=== PATIENT | female | born 1940 | race Caucasian/White ===

== ENCOUNTER 2016-05-01 10:19 | Outpatient (CLI) | payer MEDICARE, OTHER | END 2016-05-01 10:20 | disposition home or self-care (01) | DX: Z12.31 Encounter for screening mammogram for malignant neoplasm of breast (principal) ==

== ENCOUNTER 2016-07-18 08:43 | Outpatient (CLI) | payer MEDICARE, OTHER | END 2016-07-18 08:44 | disposition home or self-care (01) | DX: E11.65 Type 2 diabetes mellitus with hyperglycemia (principal); E78.2 Mixed hyperlipidemia; I10 Essential (primary) hypertension; Z79.899 Other long term (current) drug therapy ==

== ENCOUNTER 2016-08-01 07:19 | Day surgery (SDC) | payer MEDICARE, OTHER ==
[2016-08-01] MEDS ORDERED: TROPICAMIDE 1% OPHTH 2 ML DROPS OPTH ONE (07:35)
[2016-08-01] MEDS ORDERED: CYCLOPENTOLATE 1% OPHTH DROPS 2 ML OPTH ONE (07:35)
[2016-08-01] MEDS ORDERED: KETOROLAC 0.45% OPHTH DROPS OPTH ONE (07:35)
[2016-08-01] MEDS ORDERED: LACTATED RINGERS 500 ML IV ONE (07:36)
[2016-08-01] MEDS ORDERED: BSS/LIDOCAINE/EPINEPHRINE 1 ML SYRINGE IO ONE ×2 (08:47→09:03)
[2016-08-01] MEDS ORDERED: levoFLOXacin 0.5% OPHTH DROPS 5 ML OPTH ONE ×2 (08:47→09:03)
[2016-08-01] MEDS ORDERED: CHONDR SULF/HYALURONATE SYRINGE IO ONE ×2 (08:47→09:03)
[2016-08-01] MEDS ORDERED: NEOMYCIN/POLYMYX/DEXAMETH OPHTH OINT OPTH ONE ×2 (08:47→09:03)
[2016-08-01] MEDS ORDERED: BRIMONIDINE 0.2% OPHTH DROPS 5 ML OPTH ONE ×2 (08:48→09:03)
[2016-08-01] MEDS ORDERED: EPINEPHrine 1 MG/ML AMP IO ONE ×2 (08:48→09:03)
[2016-08-01] MEDS ORDERED: PROPARACAINE 0.5% OPHTH DROPS 15 ML OPTH ONE (08:48)
[2016-08-01] MEDS ORDERED: fentaNYL 100 MCG/2 ML VIAL IVP ONE (09:10)
[2016-08-01] MEDS ORDERED: ONDANSETRON 4 MG/2 ML VIAL IVP ONE (09:10)
[2016-08-01] MEDS ORDERED: MIDAZOLAM 2 MG/2 ML VIAL IVP ONE (09:10)
== END 2016-08-01 07:20 | disposition home or self-care (01) ==
PROC: 08RK3JZ Replacement of Left Lens with Synthetic Substitute, Percutaneous Approach (ICD-10-PCS; principal; 2016-08-01 08:30)
DX: H25.12 Age-related nuclear cataract, left eye (principal); Z79.82 Long term (current) use of aspirin; K21.9 Gastro-esophageal reflux disease without esophagitis; I10 Essential (primary) hypertension; E78.5 Hyperlipidemia, unspecified; N18.3 Chronic kidney disease, stage 3 (moderate); M19.90 Unspecified osteoarthritis, unspecified site; R73.9 Hyperglycemia, unspecified; G47.30 Sleep apnea, unspecified
CPT/HCPCS: 66984; V2632

== ENCOUNTER 2016-08-22 07:37 | Day surgery (SDC) | payer MEDICARE, OTHER ==
[2016-08-22] MEDS ORDERED: TROPICAMIDE 1% OPHTH 2 ML DROPS OPTH ONE (07:55)
[2016-08-22] MEDS ORDERED: KETOROLAC 0.45% OPHTH DROPS OPTH ONE (07:55)
[2016-08-22] MEDS ORDERED: CYCLOPENTOLATE 1% OPHTH DROPS 2 ML OPTH ONE (07:55)
[2016-08-22] MEDS ORDERED: LACTATED RINGERS 500 ML IV ONE (07:59)
[2016-08-22] MEDS ORDERED: PROPARACAINE 0.5% OPHTH DROPS 15 ML OPTH ONE (09:16)
[2016-08-22] MEDS ORDERED: MIDAZOLAM 2 MG/2 ML VIAL IVP ONE (09:33)
[2016-08-22] MEDS ORDERED: BRIMONIDINE 0.2% OPHTH DROPS 5 ML OPTH ONE (09:43)
[2016-08-22] MEDS ORDERED: CHONDR SULF/HYALURONATE SYRINGE IO ONE (09:43)
[2016-08-22] MEDS ORDERED: levoFLOXacin 0.5% OPHTH DROPS 5 ML OPTH ONE (09:43)
[2016-08-22] MEDS ORDERED: BSS/LIDOCAINE/EPINEPHRINE 1 ML SYRINGE IO ONE (09:43)
[2016-08-22] MEDS ORDERED: EPINEPHrine 1 MG/ML AMP IO ONE (09:43)
[2016-08-22] MEDS ORDERED: NEOMYCIN/POLYMYX/DEXAMETH OPHTH OINT OPTH ONE (09:43)
[2016-08-22] MEDS ORDERED: TETRACAINE 0.5% OPHTH DROPS 4 ML RIGHTEYE ONE (09:44)
== END 2016-08-22 07:38 | disposition home or self-care (01) ==
PROC: 08RJ3JZ Replacement of Right Lens with Synthetic Substitute, Percutaneous Approach (ICD-10-PCS; principal; 2016-08-22 09:00)
DX: H25.11 Age-related nuclear cataract, right eye (principal); E78.5 Hyperlipidemia, unspecified; Z79.82 Long term (current) use of aspirin; I10 Essential (primary) hypertension; G47.30 Sleep apnea, unspecified
CPT/HCPCS: 66984; V2632

== ENCOUNTER 2017-02-13 08:00 | Outpatient (CLI) | payer MEDICARE, OTHER ==
[2017-02-13 18:55] LABS: HEMOGLOBIN A1C 0.57 g/dL
== END 2017-02-13 08:01 | disposition home or self-care (01) ==
LOC: LAB.R 08:00
PROVIDERS: ATTEND Internal Medicine
DX: E11.65 Type 2 diabetes mellitus with hyperglycemia (principal)
CPT/HCPCS: 83036

== ENCOUNTER 2017-08-12 08:00 | Outpatient (CLI) | payer MEDICARE, OTHER ==
[2017-08-12 13:29] LABS: BASOPHILS # (AUTO) 0.1 10^3/uL (0.0-0.1); BASOPHILS % (AUTO) 1.9 %; EOSINOPHILS # (AUTO) 0.2 10^3/uL (0.0-0.7); EOSINOPHILS % (AUTO) 4.1 %; LYMPHOCYTES # (AUTO) 1.6 10^3/uL (1.5-3.5); MEAN CORPUSCULAR HEMOGLOBIN 28.8 pg (27.0-31.0); MEAN CORPUSCULAR HGB CONC 32.9 g/dL (32.0-36.0); MEAN CORPUSCULAR VOLUME 87.5 fL (81.0-99.0); MEAN PLATELET VOLUME 9.8 fL (7.9-10.8); MONOCYTES # (AUTO) 0.5 10^3/uL (0.0-1.0); MONOCYTES % (AUTO) 10.1 %; NEUTROPHILS # (AUTO) 2.3 10^3/uL (1.5-6.6); NEUTROPHILS % (AUTO) 49.9 %; PLT - PLATELET COUNT 266 10^3/uL (130-450); RED BLOOD COUNT 4.52 10^6/uL (4.20-5.40); RED CELL DISTRIBUTION WIDTH 14.6 % (12.0-15.0); WHITE BLOOD COUNT 4.6 x10^3/uL (4.8-10.8)
[2017-08-12 13:30] LABS: ALBUMIN 4.2 g/dL (3.2-5.5); BILIRUBIN,TOTAL 0.4 mg/dL (0.2-1.0); CALCIUM 10.4 mg/dL (8.5-10.3); CREATININE 1.1 mg/dL (0.4-1.0); TOTAL PROTEIN 8.3 g/dL (6.7-8.2)
[2017-08-12 14:31] LABS: HB2 TOTAL 14.5 g/dL; HEMOGLOBIN A1C 0.65 g/dL; HEMOGLOBIN A1C % 6.3 % (4.6-6.2)
== END 2017-08-12 08:01 ==
LOC: LAB.R 08:00
PROVIDERS: ATTEND Internal Medicine
DX: E88.81 Metabolic syndrome and other insulin resistance (principal); J68.3 Other acute and subacute respiratory conditions due to chemicals, gases, fumes and vapors; E78.5 Hyperlipidemia, unspecified; I10 Essential (primary) hypertension; E11.65 Type 2 diabetes mellitus with hyperglycemia
CPT/HCPCS: 80053; 83036; 84443; 85025

== ENCOUNTER 2017-09-04 07:44 | Outpatient (CLI) | payer MEDICARE, OTHER ==
--- NOTE | 2017-09-04 17:06 | Mammography Report ---
SCREENING MAMMOGRAM: 09/04/2017 CLINICAL INDICATION: A 76-year-old for screening. COMPARISON: 04/2016, 03/2014, 02/2013, 01/2012, 01/2011, 04/2009. TECHNIQUE: Routine CC and MLO projections were obtained of the breasts. FINDINGS: The breasts again demonstrate scattered fibroglandular densities bilaterally. Coarse and punctate, typically benign calcifications are present. No suspicious masses, clustered microcalcifications, or regions of architectural distortion are identified. IMPRESSION: BENIGN FINDINGS. RECOMMENDATION: Routine annual screening unless otherwise clinically indicated. BI-RADS CATEGORY 2 BENIGN FINDINGS. STANDARD QUALIFYING STATEMENTS: 1. This examination was reviewed with the aid of Computer-Aided Detection (CAD). 2. A negative or benign imaging report should not delay biopsy if clinically suspicious findings are present. Consider surgical consultation if warranted. More than 5% of cancers are not identified by imaging. 3. Dense breasts may obscure an underlying neoplasm. TD: 09/04/2017 17:05
== END 2017-09-04 07:45 | disposition home or self-care (01) ==
LOC: DI 07:44
PROVIDERS: ATTEND Internal Medicine
DX: Z12.31 Encounter for screening mammogram for malignant neoplasm of breast (principal)
CPT/HCPCS: 77067

== ENCOUNTER 2018-01-29 09:34 | Outpatient (CLI) | payer MEDICARE, OTHER ==
[2018-01-29 14:51] LABS: ALBUMIN 4.2 g/dL (3.2-5.5); ALBUMIN/GLOBULIN RATIO 1.1 (1.0-2.2); ALKALINE PHOSPHATASE 51 IU/L (42-121); ALT ALANINE AMINOTRANSFERASE 19 IU/L (10-60); AST ASPARTATE AMINOTRANSFERASE 26 IU/L (10-42); BILIRUBIN,TOTAL 0.6 mg/dL (0.2-1.0); BUN - BLOOD UREA NITROGEN 28 mg/dL (6-20); CALCIUM 10.7 mg/dL (8.5-10.3); CARBON DIOXIDE - CO2 25 mmol/L (21-32); CHLORIDE 101 mmol/L (101-111); CHOL/HDL RATIO 3.7 (<4.4); CHOLESTEROL 202 mg/dL; GFR - MDRD 54 (>89); GLUCOSE 115 mg/dL (70-100); HDL CHOLESTEROL 54 mg/dL; LDL CHOLESTEROL,CALCULATED 121 mg/dL; LDL/HDL RATIO 2.2 (<4.4); SODIUM 137 mmol/L (135-145); VLDL CHOLESTEROL 27 mg/dL
[2018-01-29 15:11] LABS: HB2 TOTAL 13.2 g/dL; HEMOGLOBIN A1C 0.56 g/dL
== END 2018-01-29 09:35 ==
LOC: LAB.R 09:34
PROVIDERS: ATTEND Internal Medicine
DX: E88.81 Metabolic syndrome and other insulin resistance (principal); E78.5 Hyperlipidemia, unspecified
CPT/HCPCS: 80053; 80061; 83036; 83721

== ENCOUNTER 2018-02-05 08:00 | Outpatient (CLI) | payer MEDICARE, OTHER | END 2018-02-05 08:01 | disposition home or self-care (01) | LOC: LAB.R 08:00 | PROVIDERS: ATTEND Internal Medicine | DX: E83.52 Hypercalcemia (principal) | CPT/HCPCS: 82310; 83519; 83970 ==

== ENCOUNTER 2018-04-15 13:22 | Outpatient (CLI) | payer MEDICARE, OTHER ==
[2018-04-15 13:43] LABS: BASOPHILS # (AUTO) 0.1 10^3/uL (0.0-0.1); BASOPHILS % (AUTO) 0.8 %; EOSINOPHILS # (AUTO) 0.1 10^3/uL (0.0-0.7); EOSINOPHILS % (AUTO) 1.9 %; HGB - HEMOGLOBIN 12.7 g/dL (12.0-16.0); LYMPHOCYTES # (AUTO) 1.7 10^3/uL (1.5-3.5); LYMPHOCYTES % (AUTO) 23.1 %; MEAN CORPUSCULAR HEMOGLOBIN 28.2 pg (27.0-31.0); MEAN CORPUSCULAR HGB CONC 32.7 g/dL (32.0-36.0); MEAN CORPUSCULAR VOLUME 86.1 fL (81.0-99.0); MEAN PLATELET VOLUME 9.5 fL (7.9-10.8); MONOCYTES # (AUTO) 0.5 10^3/uL (0.0-1.0); MONOCYTES % (AUTO) 7.1 %; NEUTROPHILS # (AUTO) 4.9 10^3/uL (1.5-6.6); NEUTROPHILS % (AUTO) 67.1 %; PLT - PLATELET COUNT 281 10^3/uL (130-450); RED BLOOD COUNT 4.51 10^6/uL (4.20-5.40); RED CELL DISTRIBUTION WIDTH 14.6 % (12.0-15.0); WHITE BLOOD COUNT 7.3 x10^3/uL (4.8-10.8)
[2018-04-15 13:49] LABS: CALCIUM 10.2 mg/dL (8.5-10.3)
== END 2018-04-15 13:23 | disposition home or self-care (01) ==
LOC: LAB 13:22
PROVIDERS: ATTEND Physician Assistant
DX: M17.11 Unilateral primary osteoarthritis, right knee (principal); Z01.818 Encounter for other preprocedural examination
CPT/HCPCS: 36415; 80048; 85025

== ENCOUNTER 2018-07-18 10:07 | Outpatient (CLI) | payer MEDICARE, OTHER ==
--- NOTE | 2018-07-18 17:04 | MRI Report ---
Reason: SCOLIOSIS OF LUMBAR SPINE,UNSPECIFIED SCOLIOSIS TY Procedure Date: 07/18/2018 Accession Number: [id number] / [id number] Procedure: MRI - Lumbar Spine W/O CPT Code: FULL RESULT: EXAM: MRI LUMBAR SPINE WITHOUT CONTRAST EXAM DATE: 07/18/2018 12:04 PM. CLINICAL HISTORY: Scoliosis of lumbar spine, unspecified scoliosis. COMPARISON: XR LUMBOSACRAL SPINE 4 VIEWS 08/31/2009 11:51 AM. TECHNIQUE: Multiplanar, multisequence T1-weighted and fluid-sensitive sequences of the lumbar spine from T12 to S1 without contrast. Other: None. FINDINGS: There is a 50 degree levoscoliosis of the lumbar spine with the apex at L1-L2. There is moderate to severe atrophy of the paraspinal musculature and mild atrophy of the psoas musculature. The abdominal aorta is of normal caliber. The kidneys are without evidence of hydronephrosis. T12-L1: There is a small disk osteophyte complex producing a mild central canal stenosis. There is mild left and moderate right facet arthropathy. There is no significant foraminal stenosis. L1-L2: There is a right paracentral disk osteophyte. There is a minimal central canal stenosis. There is mild bilateral facet arthropathy. There is a right far lateral space osteophyte which may produce displacement of the exiting right L1 nerve root. There is moderate narrowing of the right neural foramen. L2-L3: There is a broad-based disk osteophyte complex abutting the sac eccentric to the right. There is a mild central canal stenosis and a moderate right lateral recess stenosis. There is moderate right and left facet arthropathy. There is moderate to severe narrowing of the right neural foramen. Recommend correlation for right L2 radicular symptoms. L3-L4: There is a broad-based disk osteophyte complex abutting the sac. There is moderate left and right facet arthropathy. There is moderate to severe ligamentum flavum hypertrophy. There is a moderate to severe central canal stenosis. There is moderate right and moderate to severe left foraminal stenosis. Recommend correlation for L3 radicular symptoms. L4-L5: There is a small disk osteophyte complex eccentric to the left producing a mild central canal stenosis. There is mild right and moderate left facet arthropathy. There is moderate to severe left and mild to moderate right foraminal stenosis. Recommend correlation for left L4 radiculopathy. L5-S1: There is a small disk bulge abutting the sac producing a mild central canal stenosis. There is mild to moderate right and moderate left foraminal stenosis. IMPRESSION: 1. There is a 50 degree levoscoliosis of the lumbar spine with the apex at L1-L2. 2. There are mild and minimal central canal stenoses at T12-L1 and L1-L2, respectively from small disk osteophyte complex and right paracentral disk osteophyte, respectively. 3. There is a moderate to severe narrowing of the right neural foramen which may produce a right L2 radiculopathy. There is a broad-based disk osteophyte complex abutting the sac producing a mild central canal stenosis at L2-L3. 4. There is a broad-based disk osteophyte complex at L3-L4 which in combination with ligamentum flavum hypertrophy and facet arthropathy produces a moderate to severe central canal stenosis. There is a moderate to severe left foraminal stenosis. Recommend correlation for left L3 radiculopathy. 5. There is a small disk osteophyte complex eccentric to the left producing mild central canal stenosis at L4-L5. There is moderate to severe left foraminal stenosis. Recommend correlation for left L4 radiculopathy. Comment: The following findings are so common in adults without low back pain that while we report their presence, they must be interpreted with caution and in the context of the clinical situation. (Reference Maria Esther et al, Spine 2001) Prevalence of findings in patients without low back pain: Disk degeneration (any evidence): 92% Disk desiccation/T2 signal loss: 83% Disk height loss: 56% Disk bulge: 64% Disk protrusion: 32% Annular tear/high intensity zone: 38% RADIA
== END 2018-07-18 10:08 | disposition home or self-care (01) ==
LOC: DI 10:07
PROVIDERS: ATTEND Orthopaedic Surgery
DX: M41.9 Scoliosis, unspecified (principal); M47.9 Spondylosis, unspecified; M48.061 Spinal stenosis, lumbar region without neurogenic claudication; M25.78 Osteophyte, vertebrae; M48.07 Spinal stenosis, lumbosacral region
CPT/HCPCS: 72148

== ENCOUNTER 2020-01-15 10:04 | Emergency (ER) | payer MEDICARE, OTHER ==
[2020-01-15] MEDS ORDERED: AMOX/CLAV 875 MG/125 MG TABLET PO STA (12:27)
[2020-01-15] MEDS ORDERED: TETANUS/DIPHTHERIA/PERTUSSIS 0.5 ML SYRINGE IM ONE (12:27)
--- NOTE | 2020-01-15 12:30 | ED Physician Documentation ---
History of Present Illness - Stated complaint Stated Complaint: CAT BITES - LT ARM, RT HAND - Chief complaint Chief Complaint: Wound - History obtained from History obtained from: Patient - History of Present Illness Timing: How many days ago (2) Pain level max: 3 Pain level now: 2 - Additonal information Additional information: 79-year-old female presents to the emergency department after a cat bite to the left forearm 2 days ago and another cat bite yesterday on the right hand. Started to have redness and inflammation, some drainage from the left arm wound. No fevers. Nothing makes it better or worse. Last tetanus shot was approximately 10 years ago. Review of Systems Constitutional: denies: Fever, Chills GI: denies: Vomiting, Diarrhea Skin: denies: Rash Musculoskeletal: denies: Neck pain, Back pain Neurologic: denies: Headache PD PAST MEDICAL HISTORY - Past Medical History Cardiovascular: Hypertension, High cholesterol Respiratory: Sleep apnea, CPAP use Endocrine/Autoimmune: None GI: GERD, Diverticulitis : None HEENT: Chronic vision loss, Glaucoma Psych: None Musculoskeletal: Osteoarthritis, Chronic back pain Derm: Other - Past Surgical History General: Colonoscopy, EGD Ortho: Rotator cuff repair, Carpal Tunnel surgery, Other - Present Medications Home Medications: Ambulatory Orders Medication Instructions Recorded Confirmed Aspirin [Aspir 81] 81 mg PO DAILY 05/27/14 08/01/16 Cholecalciferol (Vitamin D3) 2,000 unit PO DAILY 05/27/14 08/01/16 [Vitamin D-3] Fenofibrate 160 mg PO QPM 05/27/14 08/01/16 Fluticasone [Flonase] 2 inh INH DAILY PRN 05/27/14 07/31/16 Metoprolol Succinate 50 mg PO DAILY 05/27/14 08/01/16 Multivitamin [Multivitamins] 1 each PO DAILY 05/27/14 08/01/16 Niacin (Inositol Niacinate) 1,000 mg PO BID 05/27/14 08/01/16 [Niacin Flush-Free 500 mg Cap] [place]-3 Fatty Acids [Fish Oil] 1,000 mg PO BID 05/27/14 08/01/16 Omeprazole 20 mg PO DAILY 05/27/14 08/01/16 lisinopriL [Lisinopril] 40 mg PO DAILY 05/27/14 08/01/16 Docusate Sodium 100 mg PO DAILY PRN 07/31/16 08/01/16 Latanoprost 1 drops OP QPM 07/31/16 08/01/16 Amox/Clav 875/125 [Augmentin] 1 each PO Q12H #20 tablet 01/15/20 - Allergies Allergies/Adverse Reactions: Allergies Allergy/AdvReac Type Severity Reaction Status Date / Time statins AdvReac Severe Blew Uncoded 01/15/20 10:21 tendons apart tape AdvReac Unknown Uncoded 01/15/20 10:21 PD ED PE NORMAL - Vitals Vital signs reviewed: Yes - General General: Alert and oriented X 3, No acute distress - HEENT HEENT: Moist mucous membranes - Derm Derm: Warm and dry - Extremities Extremities: Other (3 x 3 cm area of erythema with minimal drainage to the left forearm. 1 x 1 cm of erythema to the right hand, dorsum, webspace between the thumb and index finger. No drainage. No fluctuance. No lymphangitis.) - Neuro Neuro: Alert and oriented X 3 - Psych Psych: Normal mood, Normal affect Results - Vitals Vitals: Vital Signs - 24 hr 01/15/20 01/15/20 10:12 12:01 Temperature 36.6 C 36.9 C Heart Rate 95 94 Respiratory 17 22 Rate Blood Pressure 122/61 176/69 H O2 Saturation 94 98 Oxygen O2 Source Room air PD MEDICAL DECISION MAKING - ED course Complexity details: considered differential, d/w patient ED course: Patient with multiple cat bites. 1 of them has a small amount of purulent drainage. Drainage was expressed and cultured. We will place her on Augmentin. Tdap given. Patient counseled regarding signs and symptoms for which I believe and urgent re-evaluation would be necessary. Patient with good understa nding of and agreement to plan and is comfortable going home at this time This document was made in part using voice recognition software. While efforts are made to proofread this document, sound alike and grammatical errors may occur. Departure - Departure Disposition: 01 Home, Self Care Clinical Impression: Cat bite Qualifiers: Encounter type: initial encounter Qualified Code(s): W55.01XA - Bitten by cat, initial encounter Cellulitis Qualifiers: Site of cellulitis: extremity Site of cellulitis of extremity: upper extremity Laterality: left Qualified Code(s): L03.114 - Cellulitis of left upper limb Condition: Good Instructions: ED Infec Skin Cellulitis, Bites Scratches Animal Follow-Up: Grzegorz Guo MD [Primary Care Provider] - Within 1 week Prescriptions: Amox/Clav 875/125 [Augmentin] 1 each PO Q12H #20 tablet Comments: Take all antibiotics until gone. Return if you worsen. Follow-up with your doctor for further care and wound check within 3 to 4 days. Return here if you develop fevers, increasing redness, swelling, drainage, etc.
[2020-01-15 13:21] VITALS: BP 146/81
== END 2020-01-15 13:20 | disposition home or self-care (01) ==
LOC: ED 10:04
DX: L03.114 Cellulitis of left upper limb (principal); S61.451A Open bite of right hand, initial encounter; W55.01XA Bitten by cat, initial encounter
CPT/HCPCS: 87070; 87077; 87205; 90471; 90715; 99283; 99284; A9270

== ENCOUNTER 2021-01-23 09:55 | Outpatient (CLI) | payer MEDICARE, OTHER ==
[2021-01-23 10:25] LABS: BASOPHILS % (AUTO) 0.8 %; EOSINOPHILS # (AUTO) 0.2 10^3/uL (0.0-0.7); EOSINOPHILS % (AUTO) 3.1 %; HCT - HEMATOCRIT 42.7 % (37.0-47.0); HGB - HEMOGLOBIN 13.6 g/dL (12.0-16.0); LYMPHOCYTES # (AUTO) 1.3 10^3/uL (1.5-3.5); LYMPHOCYTES % (AUTO) 26.9 %; MEAN CORPUSCULAR HEMOGLOBIN 31.5 pg (27.0-31.0); MEAN CORPUSCULAR HGB CONC 31.9 g/dL (32.0-36.0); MEAN CORPUSCULAR VOLUME 98.8 fL (81.0-99.0); MONOCYTES # (AUTO) 0.4 10^3/uL (0.0-1.0); MONOCYTES % (AUTO) 9.1 %; NEUTROPHILS # (AUTO) 2.9 10^3/uL (1.5-6.6); NEUTROPHILS % (AUTO) 59.7 %; PLT - PLATELET COUNT 228 10^3/uL (130-450); RED BLOOD COUNT 4.32 10^6/uL (4.20-5.40); RED CELL DISTRIBUTION WIDTH 13.2 % (12.0-15.0); WHITE BLOOD COUNT 4.8 x10^3/uL (4.8-10.8)
[2021-01-23 10:37] LABS: ALBUMIN 4.1 g/dL (3.2-5.5); ALKALINE PHOSPHATASE 43 IU/L (42-121); ALT ALANINE AMINOTRANSFERASE 27 IU/L (10-60); AST ASPARTATE AMINOTRANSFERASE 30 IU/L (10-42); BILIRUBIN,TOTAL 0.6 mg/dL (0.2-1.0); BUN - BLOOD UREA NITROGEN 38 mg/dL (6-20); CALCIUM 10.5 mg/dL (8.5-10.3); CARBON DIOXIDE - CO2 25 mmol/L (21-32); CHLORIDE 104 mmol/L (101-111); CHOL/HDL RATIO 3.6 (<4.4); CHOLESTEROL 240 mg/dL; CREATININE 1.4 mg/dL (0.4-1.0); GFR - MDRD 36 (>89); GLUCOSE 118 mg/dL (70-100); HDL CHOLESTEROL 66 mg/dL; LDL CHOLESTEROL,CALCULATED 142 mg/dL; LDL/HDL RATIO 2.2 (<4.4); POTASSIUM 4.5 mmol/L (3.5-5.0); SODIUM 142 mmol/L (135-145); TOTAL PROTEIN 8.3 g/dL (6.7-8.2); TRIGLYCERIDES 158 mg/dL; VLDL CHOLESTEROL 32 mg/dL
[2021-01-23 10:49] LABS: THYROID STIMULATING HORMONE 1.34 uIU/mL (0.34-5.60)
[2021-01-23 12:36] LABS: ESTIMATED AVERAGE GLUCOSE 140 mg/dL (70-100); HEMOGLOBIN A1c% 6.5 % (4.27-6.07)
== END 2021-01-23 09:56 | disposition home or self-care (01) ==
LOC: LAB 09:55
PROVIDERS: ATTEND Family Medicine
DX: M54.16 Radiculopathy, lumbar region (principal); M62.830 Muscle spasm of back; M41.9 Scoliosis, unspecified; M17.0 Bilateral primary osteoarthritis of knee; G47.33 Obstructive sleep apnea (adult) (pediatric); E88.81 Metabolic syndrome and other insulin resistance; E78.5 Hyperlipidemia, unspecified; K21.9 Gastro-esophageal reflux disease without esophagitis; I10 Essential (primary) hypertension; E11.9 Type 2 diabetes mellitus without complications
CPT/HCPCS: 36415; 80053; 80061; 83036; 83721; 84443; 85025

== ENCOUNTER 2021-04-13 14:04 | Outpatient (CLI) | payer MEDICARE, OTHER ==
[2021-04-13 15:06] VITALS: BP 134/92
--- NOTE | 2021-04-13 15:06 | SLEEP CARE CONSULTATION ---
Information from patient questionnaire entered by Sonny Laura MA. I have reviewed and concur with the information entered by Sonny Laura MA. This document represents the service I personally performed and the decisions made by , Amy Dillard ARNP. History of Present Illness Service Date and Time: 04/13/2021 1404 Reason for Visit: New patient, Previously diagnosed sleep apnea, sleep apnea on CPAP therapy, Other (ADVICE ON BATTERY, POWER OUTAGES) Chief Complaint: reports: Excessive daytime sleepiness, Observed pauses in breathing, Frequent awakenings at night Date of Onset: 12 YEARS Usual bedtime: 900 PM Time it takes to fall asleep: VARIES Snores at night: No Observed to quit breathing while asleep: No Sleeps alone due to snoring: No Number of times waking at night: 3-5 Reasons for waking at night: reports: Gasping for air, Pain, Bathroom Toss, Turn, or Twitch while sleeping: Yes Recalls having dreams: Yes Usually gets out of bed at: [address] Morning headache: Yes Sleepy or fatigued during the day: No Ever fallen asleep while driving: Yes Takes day naps: No Prior sleep studies: Yes Additional HPI information: KARYNA MIKE was previouly diagnosed to have moderate, AHI 15.8, obstructive sleep apnea-hypopnea syndrome and returns to the office today with spouse to re- establish care for CPAP therapy. - Parasomnia Symptoms Ever been unable to move upon waking from sleep: No Walks in sleep: No Talks in sleep: Yes Ever acted out dreams in sleep: Yes Ever felt weak in the knees when startled or emotional: No Bothered by creepy, crawly, restless sensations in legs: No Problems with memory or concentration: Yes CPAP Compliance Data - Data Reviewed with Patient Average duration of nightly device use: 10 hours 36 minutes Compliance rate %: 99.4 Humidity settin Average residual AHI: 0.6 Central apnea: 0.2 Obstructive apnea: 0.2 Compliance data discussion: She uses a Jarred machine. She states she cannot sleep without it. She uses a [employer] Wisp. She last changed it about 5-6 weeks ago. Subjective Missed days of use due to: reports: other (power outage) Patient concerns: reports: air blowing in eyes, nasal congestion, dry mouth, nose, throat (dry mouth ). denies: aerophagia, mask discomfort, mask leak noise, condensation in mask/hose, epistaxis, other Initial Williams Sleepiness Scale score: 4 (2020) Past Medical History Past Medical History: reports: Claustrophobia, Diabetes, Arthritis, Asthma, GERD, Attention deficit Social History The patient's occupation is a RE. Patient is and lives in [place]. Have you smoked in the past 12 months: No Alcohol use: Yes Alcohol amount and frequency: 1-2 X DAILY Caffeine use: Yes Caffeine amount and frequency: 1 CUP X DAILY Family History Family history of sleep disordered breathing: No Allergies and Home Medications Known drug allergies: No (STATINS) Home medication list reviewed: Yes Allergy and home medication list: Lisinopril Metoprolol Omeprazole Fenofibrate Latanoprost opthalmic solution Drzolamide 2% solution Alphagan P Albuterol inhaler, prn Flonase Senior multivitamins fish oil Niacinamid docusate sodium Aleve Acetaminophen Acetaminophen PM Vitamin D3 Review of Systems Cardiovascular: reports: have to sleep sitting up Respiratory: reports: chronic cough Urinary: reports: incontinence Psychiatric: reports: claustrophobia Ear/Nose/Throat: reports: sinus problems Endocrine: reports: sluggishness Musculoskeletal: reports: mobility problems (SEVERE CURVATURE OF SPINE BOTH KNEES REPLACED) Physical Exam Vital signs obtained and entered by: RODRIGUE DÍAZ Blood Pressure: 134/92 (RIGHT) Cuff size: wrist Heart Rate: 97 O2 Saturation: 95 (WITH MASK) Height: 5 ft 1 in Weight: 187 lb (WITH CLOTHES) Body Mass Index: 35.3 BMI Classification: Obese Heart: regular rate and rhythm Lungs: clear bilaterally Impression and Plan 1. Obstructive Sleep Apnea-Hypopnea Syndrome, moderate, with good treatment compliance and good apnea control. On CPAP therapy, the patient has better sleep quality and is more rested overall. Patient states she always has dry mouth. Recently she started to have some nasal congestion and she saw her doctor who told her it was more sinus related. I asked her about her humidity chamber and she states she does not know how to use it but she does feel it with water every day. She still gets a dry mouth in the mornings. Patient has a REMstar system one 60 series. She has not been seen here in the office since 2016. She tried to get supplies from her DME [employer] but they told her she had to be seen first and she came in for an appointment. I informed the patient that Jarred [employer] has a recall on several devices like the patients machine. Patient denies any black particles seen in machine or hoses, any unusual odors coming from device. Patient has not experienced any physical symptoms such as upper airway irritation, headache, skin or eye irritation, asthma, nausea/vomiting, difficulty breathing or chest pain. If patient is not able to sleep due to waking up choking, gasping for air or other respiratory distress that they may decide to continue using it until it is either replaced or repaired. Since the patients current machine is at least 5 years old the patient is opting to update their device with a device that is not on the recall. Thus, the CPAP will be updated. The new CPAPs also have a better humidity system which could assist control of patients dryness symptoms. A DWO prescription will be made. Compliance guidelines for new device and follow up discussed. Patient voiced understanding and agreement with plan. Patient's apnea severity and rationale for treatment to reduce apnea, improve sleep quality and reduce cardiovascular and cerebrovascular events was reviewed. I also reviewed the benefit of consistent device use of CPAP for hypertension and gastric reflux. * Continue auto CPAP pressure at 11 cmH2O * Notify me if snoring with mask or feeling that the pressure is too much or too little * Attempt to lose weight * Call this office if any problems using CPAP * Return for follow up one month after obtaining new device, or sooner if concerns arise Counseling Topics: Weight loss health impact Visit Type: In Office Time Spent with Patient (minutes): 32 Provider Statement: I spent 100% of the Face to Face Visit with the patient with greater than 50% spent counseling the patient and coordination of care.
== END 2021-04-13 14:05 | disposition home or self-care (01) ==
LOC: SC 14:04
PROVIDERS: ATTEND Nurse Practitioner Family
DX: G47.33 Obstructive sleep apnea (adult) (pediatric) (principal); E66.9 Obesity, unspecified; Z68.35 Body mass index [BMI] 35.0-35.9, adult
CPT/HCPCS: 99203; G0463; 99212

== ENCOUNTER 2021-06-30 11:21 | Outpatient (CLI) | payer MEDICARE, OTHER ==
--- NOTE | 2021-06-30 12:20 | SLEEP CARE CONSULTATION ---
Information from patient questionnaire entered by Sonny Higginbotham MA. I have reviewed and concur with the information entered by Sonny Higginbotham MA. This document represents the service I personally performed and the decisions made by , Amy Dillard ARNP. History of Present Illness Service Date and Time: 06/30/2021 1121 Previous diagnosis: Moderate, Obstructive Sleep Apnea-Hypopnea Syndrome AHI: 15.8 Reason for follow up: first compliance (SET UP DATE 05/16, BAKARI 2,), first compliance after device update Equipment type: CPAP Equipment obtained from: [employer] (getting supplies but not real happy with the DME) Mask style: Nasal Mask brand: Respironics (Dreamwear Wisp) Backup mask available: Yes (other mask) Last cushion change: 2 days ago Prior sleep studies: Yes HPI additional information: KARYNA MIKE was diagnosed to have moderate, AHI 15.8, obstructive sleep apnea-hypopnea syndrome and returned today for CPAP therapy first compliance after updating device follow-up. Sleep Study - Results Prior sleep studies: Yes CPAP Compliance Data - Data Reviewed with Patient Average duration of nightly device use: 10 hours 55 minutes Compliance rate %: 100 Current pressure setting (cmH2O): 4-11 Average residual AHI: 0.4 Central apnea: 0.2 Average large leak: 2.1 LPM Subjective Patient concerns: reports: air blowing in eyes, other (some eyelid redness). denies: aerophagia, mask discomfort, mask leak noise, condensation in mask/hose, nasal congestion, dry mouth, nose, throat, epistaxis Observed to snore while using device: No Current pressure setting perceived as: comfortable On therapy, patient: reports: sleeping better, awakening more refreshed, being more awake and alert during the day, more rested overall. denies: drowsiness while driving Initial [place] Sleepiness Scale score: 4 (2020) Current [place] Sleepiness Scale score: 3 (2021) Allergies and Home Medications Home medication list reviewed: Yes (no changes) Allergy and home medication list: Allergies statins Adverse Reaction (Severe, Uncoded 01/15/20 10:21) Blew tendons apart tape Adverse Reaction (Uncoded 01/15/20 10:21) Unknown Review of Systems Review of systems same as previous: No (boderline diabetes, no meds yet) Physical Exam Vital signs obtained and entered by: Heron HIGGINBOTHAM CMA MELISSA Blood Pressure: 123/94 (right, pulse 92, resp 16,) Cuff size: wrist Heart Rate: 72 O2 Saturation: 97 (n94) Height: 5 ft 1 in Weight: 186 lb (clothes) Weight change since last visit: 1 lb gain Body Mass Index: 35.1 BMI Classification: Obese Impression and Plan 1. Obstructive Sleep Apnea-Hypopnea Syndrome, moderate, with excellent treatment compliance and excellent apnea control. On CPAP therapy, the patient has better sleep quality and is more rested overall. Patient is satisfied with current CPAP therapy and new device. She states she cannot sleep without it. She does have a [employer]ear wisp and states sometimes she gets air into her eyes. She also wakes up with reddening of her eyelids. She has a history of glaucoma and uses drops in her eyes every day. She would like to try a different style of nasal mask. I showed her a [employer]ear nasal cushion mask and gave her a sample that she can try at home. I instructed her that if it works for her that she can order more through her DME supplier. She voiced understanding. Patient's apnea severity and rationale for treatment to reduce apnea, improve sleep quality and reduce cardiovascular and cerebrovascular events was reviewed. I also reviewed the benefit of consistent device use of CPAP for diabetes, gastric reflux, attention deficit and asthma. 2. Obesity, unspecified. Patient has gained weight. Currently patients BMI is 35.1. Obesity increases the risk of apnea, CPAP pressure requirements and overall health risks especially cardiovascular and diabetes. Thus patient is advised to lose weight. Weight loss can be done with reducing portion size, reducing refined foods and balancing content with vegetables, fruit and whole gr ain foods. In addition, patient encouraged to get regular exercise. Patient stated she has difficulty being able to get exercise because she was unsteady on her feet and has to use a cane for safe ambulation. I suggested trying a pedal circular tank cooper that she could do while sitting to increase her exercise. I showed her a sample of what they look like online. She voiced that she would try this because it looks like it would work for her. * Continue auto CPAP pressure at 4-11 cmH2O * Notify me if snoring with mask or feeling that the pressure is too much or too little * Attempt to lose weight * Try a stationary foot pedal circular tank cooper to help increase activity * Call this office if any problems using CPAP * Return for follow up in 1 year, or sooner if concerns arise Mask provided: Yes Counseling Topics: Spare mask, Weight loss health impact Visit Type: In Office Time Spent with Patient (minutes): 21 Provider Statement: I spent 100% of the Face to Face Visit with the patient with greater than 50% spent counseling the patient and coordination of care.
[2021-06-30 12:21] VITALS: BP 123/94
== END 2021-06-30 11:22 | disposition home or self-care (01) ==
LOC: SC 11:21
PROVIDERS: ATTEND Nurse Practitioner Family
DX: G47.33 Obstructive sleep apnea (adult) (pediatric) (principal); E66.9 Obesity, unspecified; Z68.35 Body mass index [BMI] 35.0-35.9, adult
CPT/HCPCS: 99213; G0463; 99212

== ENCOUNTER 2021-08-08 08:00 | Outpatient (CLI) | payer MEDICARE, OTHER ==
[2021-08-08 09:42] LABS: CALCIUM 10.4 mg/dL (8.5-10.3); CREATININE 1.2 mg/dL (0.4-1.0); POTASSIUM 4.3 mmol/L (3.5-5.0)
[2021-08-08 13:02] LABS: ESTIMATED AVERAGE GLUCOSE 154 mg/dL (70-100)
== END 2021-08-08 08:01 | disposition home or self-care (01) ==
LOC: LAB 08:00
PROVIDERS: ATTEND Family Medicine
DX: E11.9 Type 2 diabetes mellitus without complications (principal); E66.9 Obesity, unspecified
CPT/HCPCS: 36415; 80048; 83036

== ENCOUNTER 2022-08-16 11:19 | Outpatient (CLI) | payer MEDICARE, OTHER ==
[2022-08-16 12:10] VITALS: BP 120/70
--- NOTE | 2022-08-16 12:10 | SLEEP CARE CONSULTATION ---
Information from patient questionnaire entered by Suzanne Farmer. I have reviewed and concur with the information entered by Suzanne Farmer. This document represents the service I personally performed and the decisions made by me, Amy Dillard ARNP. History of Present Illness Service Date and Time: 08/16/2022 1119 Previous diagnosis: Moderate, Obstructive Sleep Apnea-Hypopnea Syndrome AHI: 15.8 Reason for follow up: annual (LAST SEEN 06/2021) Equipment type: CPAP (Jeanne II; ICODE NEED PT MACHINE OR SD CARD FOR DOWNLOAD AND PRESSURE CHANGES) Equipment obtained from: [employer] (getting supplies) Mask style: Nasal pillows (P10 for women) Mask brand: Resmed Backup mask available: Yes (old mask) Last cushion change: 2 weeks Prior sleep studies: Yes HPI additional information: KARYNA MIKE was diagnosed to have moderate, AHI 15.8, obstructive sleep apnea-hypopnea syndrome and returned today for CPAP therapy annual follow-up. Sleep Study - Results Prior sleep studies: Yes CPAP Compliance Data - Data Reviewed with Patient Average duration of nightly device use: 11 hours (includes afternoon nap) Compliance rate %: 100 Current pressure setting (cmH2O): 11 Average residual AHI: 1.3 Average large leak: 2.3 lpm Compliance data discussion: She is wearing her mask every night. We were unable to get full data from her machine on hours used but she appears to be compliant with CPAP use. Subjective Patient concerns: denies: aerophagia, mask discomfort, air blowing in eyes, mask leak noise, condensation in mask/hose, nasal congestion, dry mouth, nose, throat, epistaxis Observed to snore while using device: No Current pressure setting perceived as: comfortable On therapy, patient: reports: sleeping better, awakening more refreshed, being more awake and alert during the day, more rested overall. denies: drowsiness while driving Initial [place] Sleepiness Scale score: 4 (2020) Current [place] Sleepiness Scale score: 3 (08/16/22) Allergies and Home Medications Known drug allergies: Yes (as listed) Drug allergies reviewed: Yes Home medication list reviewed: Yes (no changes) Allergy and home medication list: Allergies statins Adverse Reaction (Severe, Uncoded 08/15/22 14:05) Blew tendons apart tape Adverse Reaction (Uncoded 08/15/22 14:05) Unknown Review of Systems Review of systems same as previous: No (newly diagnosed with Diabetes, no new meds yet - diet changes first) Physical Exam Vital signs obtained and entered by: SUZANNE Clarke MA Blood Pressure: 120/70 (LEFT ARM) Cuff size: regular Heart Rate: 94 O2 Saturation: 98 Height: 5 ft 1 in Weight: 192 lb 12.8 oz Weight change since last visit: 8 lb gain from last visit Body Mass Index: 36.4 BMI Classification: Obese Impression and Plan 1. Obstructive Sleep Apnea-Hypopnea Syndrome, moderate, with good treatment compliance and good apnea control. On CPAP therapy, the patient has better sleep quality and is more rested overall. Patient has significant improvement of her sleep apnea and is satisfied with current CPAP therapy. Patient denies problems with oral dryness, nasal congestion, epistaxis, skin irritation or aerophagia. We will follow up with her next year. Patient's apnea severity and rationale for treatment to reduce apnea, improve sleep quality and reduce cardiovascular and cerebrovascular events was reviewed. I also reviewed the benefit of consistent device use of CPAP for diabetes, gastric reflux, attention deficit and asthma. 2. Obesity, unspecified. Currently patients BMI is 36.4. Obesity increases the risk of apnea, CPAP pressure requirements and overall health risks especially cardiovascular and diabetes. Thus patient is advised to lose weight. * Continue CPAP pressure at 11 cmH2O * Update supplies * Notify me if snoring with mask or feeling that the pressure is too much or too little * Attempt to lose weight * Call this office if any problems using CPAP * Return for follow up in 1 year, or sooner if concerns arise Counseling Topics: Spare mask, Weight loss health impact Visit Type: In Office Time Spent with Patient (minutes): 23 Provider Statement: I spent 100% of the Face to Face Visit with the patient with greater than 50% spent counseling the patient and coordination of care.
== END 2022-08-16 11:20 | disposition home or self-care (01) ==
LOC: SC 11:19
PROVIDERS: ATTEND Nurse Practitioner Family
DX: G47.33 Obstructive sleep apnea (adult) (pediatric) (principal); E66.9 Obesity, unspecified; Z68.36 Body mass index [BMI] 36.0-36.9, adult
CPT/HCPCS: 99213; G0463; 99212

== ENCOUNTER 2022-09-03 08:20 | Outpatient (CLI) | payer MEDICARE, OTHER ==
[2022-09-03 09:01] LABS: CALCIUM 10.7 mg/dL (8.5-10.3); CREATININE 1.1 mg/dL (0.4-1.0); POTASSIUM 4.7 mmol/L (3.5-5.0)
[2022-09-03 13:59] LABS: ESTIMATED AVERAGE GLUCOSE 154 mg/dL (70-100)
== END 2022-09-03 08:21 | disposition home or self-care (01) ==
LOC: LAB 08:20
PROVIDERS: ATTEND Family Medicine
DX: E11.9 Type 2 diabetes mellitus without complications (principal); E66.9 Obesity, unspecified
CPT/HCPCS: 36415; 80048; 83036

== ENCOUNTER 2022-12-19 09:03 | Outpatient (CLI) | payer MEDICARE, OTHER ==
[2022-12-19 09:27] LABS: CALCIUM 10.9 mg/dL (8.5-10.3); CREATININE 1.3 mg/dL (0.6-1.3); POTASSIUM 4.5 mmol/L (3.5-4.5)
[2022-12-19 11:23] LABS: ESTIMATED AVERAGE GLUCOSE 154 mg/dL (70-100)
== END 2022-12-19 09:04 | disposition home or self-care (01) ==
LOC: LAB 09:03
PROVIDERS: ATTEND Family Medicine
DX: E11.9 Type 2 diabetes mellitus without complications (principal)
CPT/HCPCS: 36415; 80048; 83036

== ENCOUNTER 2023-07-18 13:39 | Outpatient (CLI) | payer MEDICARE, OTHER ==
[2023-07-18 14:11] LABS: ALBUMIN 4.5 g/dL (3.2-5.5); ALKALINE PHOSPHATASE 50 IU/L (42-121); ALT ALANINE AMINOTRANSFERASE 16 IU/L (10-60); AST ASPARTATE AMINOTRANSFERASE 25 IU/L (10-42); BILIRUBIN,DIRECT < 0.10 mg/dL (0.03-0.18); BILIRUBIN,TOTAL 0.5 mg/dL (0.2-1.0); BUN - BLOOD UREA NITROGEN 32 mg/dL (6-20); CREATININE 1.2 mg/dL (0.6-1.3); GFR - MDRD 43 (>89); TOTAL PROTEIN 8.4 g/dL (6.4-8.9)
== END 2023-07-18 13:40 | disposition home or self-care (01) ==
LOC: LAB 13:39
PROVIDERS: ATTEND Physician Assistant Medical
DX: B35.1 Tinea unguium (principal)
CPT/HCPCS: 36415; 80076; 82565; 84520

== ENCOUNTER 2023-08-22 10:16 | Outpatient (CLI) | payer MEDICARE, OTHER ==
--- NOTE | 2023-08-22 10:51 | Sleep Patient Instructions ---
Sleep Center Visit Summary - Patient Visit Information Reason for Visit: Annual follow-up - Patient Instructions Additional Instructions: You will continue with CPAP therapy with pressure set at 11 cmH2O. A supply prescription will be updated with your DME. We encourage you to continue to try to lose weight. Please follow up with the sleep care office in 1 year. - Clinic Information Contact: [facility] [address] [place] [address] [email or web address] T: [phone]
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
[2023-08-22 11:00] VITALS: BP 163/99; O2SAT 99
== END 2023-08-22 10:17 | disposition home or self-care (01) ==
LOC: SC 10:16
PROVIDERS: ATTEND Nurse Practitioner Family
DX: G47.33 Obstructive sleep apnea (adult) (pediatric) (principal); E66.9 Obesity, unspecified; Z68.34 Body mass index [BMI] 34.0-34.9, adult
CPT/HCPCS: 99213; G0463; 99212

== ENCOUNTER 2023-09-11 08:50 | Outpatient (CLI) | payer MEDICARE, OTHER ==
[2023-09-11 09:05] LABS: BASOPHILS % (AUTO) 0.6 %; EOSINOPHILS # (AUTO) 0.2 10^3/uL (0.0-0.7); EOSINOPHILS % (AUTO) 2.8 %; HCT - HEMATOCRIT 42.2 % (37.0-47.0); HGB - HEMOGLOBIN 13.6 g/dL (12.0-16.0); LYMPHOCYTES # (AUTO) 1.6 10^3/uL (1.5-3.5); LYMPHOCYTES % (AUTO) 28.9 %; MEAN CORPUSCULAR HEMOGLOBIN 30.6 pg (27.0-31.0); MEAN CORPUSCULAR HGB CONC 32.2 g/dL (32.0-36.0); MEAN PLATELET VOLUME 10.1 fL (7.9-10.8); MONOCYTES # (AUTO) 0.5 10^3/uL (0.0-1.0); MONOCYTES % (AUTO) 9.5 %; NEUTROPHILS # (AUTO) 3.1 10^3/uL (1.5-6.6); NEUTROPHILS % (AUTO) 57.8 %; PLT - PLATELET COUNT 238 10^3/uL (130-450); RED BLOOD COUNT 4.44 10^6/uL (4.20-5.40); RED CELL DISTRIBUTION WIDTH 13.7 % (12.0-15.0); WHITE BLOOD COUNT 5.4 x10^3/uL (4.8-10.8)
[2023-09-11 09:19] LABS: ALBUMIN 4.4 g/dL (3.2-5.5); ALBUMIN/GLOBULIN RATIO 1.1 (1.0-2.2); ALKALINE PHOSPHATASE 55 IU/L (42-121); ALT ALANINE AMINOTRANSFERASE 14 IU/L (10-60); AST ASPARTATE AMINOTRANSFERASE 18 IU/L (10-42); BILIRUBIN,TOTAL 0.4 mg/dL (0.2-1.0); BUN - BLOOD UREA NITROGEN 39 mg/dL (6-20); CARBON DIOXIDE - CO2 25 mmol/L (21-32); CHLORIDE 104 mmol/L (101-111); CHOL/HDL RATIO 3.8 (<4.4); CHOLESTEROL 204 mg/dL; CREATININE 1.3 mg/dL (0.6-1.3); GFR - MDRD 39 (>89); GLUCOSE 118 mg/dL (74-104); HDL CHOLESTEROL 54 mg/dL; LDL CHOLESTEROL,CALCULATED 119 mg/dL; LDL/HDL RATIO 2.2 (<4.4); POTASSIUM 4.3 mmol/L (3.5-4.5); SODIUM 137 mmol/L (135-145); TOTAL PROTEIN 8.3 g/dL (6.4-8.9); TRIGLYCERIDES 157 mg/dL (48-352); VLDL CHOLESTEROL 31 mg/dL
[2023-09-11 09:34] LABS: THYROID STIMULATING HORMONE 1.47 uIU/mL (0.34-5.60)
[2023-09-11 10:19] LABS: ESTIMATED AVERAGE GLUCOSE 148 mg/dL (70-100); HEMOGLOBIN A1c% 6.8 % (4.27-6.07)
== END 2023-09-11 08:51 | disposition home or self-care (01) ==
LOC: LAB 08:50
PROVIDERS: ATTEND Family Medicine
DX: E55.9 Vitamin D deficiency, unspecified (principal)
CPT/HCPCS: 36415; 80053; 80061; 82306; 83036; 83721; 84443; 85025

== ENCOUNTER 2023-12-02 09:02 | Outpatient (CLI) | payer MEDICARE, OTHER ==
[2023-12-02 09:31] LABS: ALBUMIN 4.5 g/dL (3.2-5.5); ALKALINE PHOSPHATASE 42 IU/L (42-121); ALT ALANINE AMINOTRANSFERASE 16 IU/L (10-60); AST ASPARTATE AMINOTRANSFERASE 20 IU/L (10-42); BILIRUBIN,DIRECT < 0.10 mg/dL (0.03-0.18); BILIRUBIN,TOTAL 0.6 mg/dL (0.2-1.0); BUN - BLOOD UREA NITROGEN 29 mg/dL (6-20); CREATININE 1.2 mg/dL (0.6-1.3); GFR - MDRD 43 (>89); TOTAL PROTEIN 8.1 g/dL (6.4-8.9)
== END 2023-12-02 09:03 | disposition home or self-care (01) ==
LOC: LAB 09:02
PROVIDERS: ATTEND Physician Assistant Medical
DX: B35.1 Tinea unguium (principal)
CPT/HCPCS: 36415; 80076; 82565; 84520